=== PATIENT | male | born 1945 | race Caucasian/White ===

== ENCOUNTER 2019-02-09 00:28 | Inpatient (IN) | payer OTHER ==
[~2019-02-09] VITALS: Ht 185.4 cm; Wt 110.1 kg
[2019-02-09 01:14] LABS: BE(vivo) 1.9 mmol/L (-2 to +3); HCO3 29.5 mmol/L (22.0-26.0); PCO2 59.8 mmHg (35.0-45.0); PO2 123.2 mmHg (80.0-100.0); sO2 98.1 % (92.0-98.0)
[2019-02-09 01:15] LABS: pH 7.311 (7.360-7.450)
[2019-02-09] MEDS ORDERED: AMLODIPINE BESY10 MG PO (01:37)
[2019-02-09] MEDS ORDERED: LEXAPRO 10 MG T10 M2 PO (01:37)
[2019-02-09] MEDS ORDERED: IPRAT-ALBUT 0.5-3 ML INH (01:41)
[2019-02-09 02:30] VITALS: BP 122/68
[2019-02-09 05:15] LABS: CALCIUM 8.6 mg/dL (8.5-10.1); CREATININE 1.2 mg/dL (0.7-1.3); POTASSIUM 3.8 mmol/L (3.5-5.1)
[2019-02-09 05:19] LABS: HEMATOCRIT 36.3 % (42.0-52.0); HEMOGLOBIN 12.3 gm/dL (14.0-18.0); MCH 33.5 pg (26.0-34.0); MCHC 33.9 g/dL (28.0-37.0); MCV 98.8 fL (80.0-100.0); PLATELET COUNT 214 thou/uL (150-400); RBC 3.68 mil/uL (4.50-6.00); RDW 13.6 % (10.5-14.5); WBC 6.8 thou/uL (4.0-11.0)
[2019-02-09 05:21] LABS: ALBUMIN 2.8 g/dL (3.4-5.0); MAGNESIUM 1.8 mg/dL (1.8-2.4); TOTAL BILIRUBIN 0.8 mg/dL (<0.1-1.0); TOTAL PROTEIN 7.2 g/dL (6.4-8.2)
[2019-02-09 05:45] LABS: FOLIC ACID 15.5 ng/mL (8.6-58.9)
--- NOTE | 2019-02-09 05:48 | NUR ---
PT ADMITTED FROM [facility] TO ICU TO 2N WITH HYPOXIC RESP FAILURE,COPD EXACERBATION AND PNA.PT ARRIVED TO UNIT WITH BIPAP ON AT 4% FIO2,SATS 98% ON BIPAP.PT IS ACCOMPANIED BY HER DAUGHTER AND OTHER FAMILY MEMBER,A/OX4.[place]Y [place],HAS MARY HEARING AID BUT PER DAUGHTER PT STILL HAS DIFFICULTIES IN HEARING.ORIENTED TO RM.DENIES ANY DISTRESS.ASSESSMENT COMPLETED DOCUMENTED.STARTED ON ANTIBIOTICS PER ORDERS.TONIA FELDER.NSR ON MONITOR.FALL PRECAUTIONS INTIATED.MEDS VERIFIED BY VISUAL MERCHANDISING ASSOCIATE.IVF PER ORDERS.PT HAS H/O ALCOHOLISM,HAS CIWR ORERS IF NEEDED.PT HAS NO S/SX OF WITHDRAWING AT THIS TIME.RESTING IN NO ACUTE DISTRESS.VSS.WILL CONT TO MONITOR PER POC.
[2019-02-09 08:00] VITALS: BP 148/72
[2019-02-09 09:24] LABS: ABSOLUTE NEUTROPHILS 4.4 thou/uL (1.4-8.2); METAMYELOCYTES 1 %; PLATELET ESTIMATE NORMAL
--- NOTE | 2019-02-09 10:46 | 2DMMODE ---
[facility] [address] [place] [address] 2 D/M-MODE ECHOCARDIOGRAM Name: HUMBERTO MICHELE Room #: 218-P [facility] IN ..#: [id number] Admission: 02/09/19 Attend Phys: Kel Hilliard MD Discharge: Date of : 45 Report #: [id number] THIS REPORT FOR: //name// APPROVED REPORT Study performed: 02/09/2019 09:48:58 EXAM: Comprehensive 2D, Doppler, and color-flow Echocardiogram Patient Location: Bedside Room #: 218 Status: routine BSA: 2.28 HR: 94 bpm BP: 148/72 mmHg Rhythm: NSR Other Information Study Quality: Technically Difficult Technically limited study due to lung disease, inability to position patient, body habitus. Indications COPD Diabetes Hypertension/HDD SOA,HLD 2D Dimensions RVDd: 45.53 mm IVSd: 9.85 (7-11mm) LVOT Diam: 21.66 (18-24mm) LVDd: 51.18 mm PWd: 10.60 (7-11mm) LVDs: 36.42 (25-40mm) Aortic Root: 35.89 mm IVC: 31.00 mm Volumes Left Atrial Volume (Systole) Single Plane 4CH: 64.36 mL Single Plane 2CH: 37.18 mL LA ESV Index: 20.00 mL/m2 Aortic Valve AoV Peak Sagar.: 1.53 m/s AO Peak Gr.: 9.30 mmHg LVOT Max P.83 mmHg LVOT Max V: 1.31 m/s [facility] [address] [address] 2 D/M-MODE ECHOCARDIOGRAM Name: HUMBERTO MICHELE Room #: 218-P [facility]#: [id number] Admission: 02/09/19 Attend Phys: Kel Hilliard MD Discharge: Date of : 45 Report #: [id number] Vmax: 3.16 cm2 Mitral Valve E/A Ratio: 0.9 MV Decel. Time: 177.62 ms MV E Max Sagar.: 0.82 m/s MV A Sagar.: 0.95 m/s MV PHT: 51.51 ms Pulmonary Valve PV Peak Sagar.: 1.39 m/s PV Peak Gr.: 7.73 mmHg Tricuspid Valve RAP Estimate: 15.00 mmHg Left Ventricle The left ventricle is normal size. There is normal left ventricular wall thickness. The left ventricular systolic function is normal. The left ventricular ejection fraction is within the normal range. LVEF is 65%. This study is not technically sufficient to allow evaluation of the LV diastolic function. Right Ventricle Right ventricle is mild to moderately dilated. The right ventricular systolic function is normal. Atria The left atrium size is normal. Right atrium is mildly to moderately dilated. Aortic Valve The aortic valve is normal in structure. No aortic regurgitation is present. There is no aortic valvular stenosis. Mitral Valve The mitral valve is normal in structure. There is no mitral valve regurgitation noted. No evidence of mitral valve stenosis. Tricuspid Valve The tricuspid valve is normal in structure. Trace tricuspid regurgitation. Unable to assess PA pressure. Pulmonic Valve The pulmonary valve is normal in structure. Trace pulmonic regurgitation. [facility] [address] [place] [address] 2 D/M-MODE ECHOCARDIOGRAM Name: HUMBERTO MICHELE Room #: 218-P [facility] IN [facility].#: [id number] Admission: 02/09/19 Attend Phys: Kel Hilliard MD Discharge: Date of : 45 Report #: [id number] [employer] The aortic root is normal in size. IVC is dilated and collapses <50% with inspiration. Pericardium There is no pericardial effusion. <Conclusion> The left ventricle is normal size. LVEF is 65%. This study is not technically sufficient to allow evaluation of the LV diastolic function. Right ventricle is mild to moderately dilated. The right ventricular systolic function is normal. Right atrium is mildly to moderately dilated. The aortic valve is normal in structure. There is no mitral valve regurgitation noted. Trace tricuspid regurgitation. Unable to assess PA pressure. The aortic root is normal in size. There is no pericardial effusion. <ELECTRONICALLY SIGNED> By: Cristopher Beltre MD, [facility] 02/09/19 1045 1045 1045 Cristopher Beltre MD, [facility] /INF
[2019-02-09 12:00] VITALS: BP 146/62
[2019-02-09 16:00] VITALS: BP 159/65
--- NOTE | 2019-02-09 16:07 | NUR ---
Case opened to follow for dc planning. Pt is a&ox4 and lives alone in a mobile home. He has 3 steps to enter and lives down the road from his dtr Jessi. Jessi is at bedside today during my visit. She reports that she checks on him daily and can assist as needed at dc. The pt reports that he is very independent and manages his adl's and IADLs. His pcp is Dr. Elias Torres and he saw him about 3 weeks ago. He has an appt with him on 02/22/19. He denies any home dme other than a nebulizer. He reports that he had home o2 per [facility] at one time but had it picked up as he was not needing it. He had not had any hh or snf. Both services discussed as well as medicare coverage. He is receptive to discussing options further if needed, but he is hoping he can go home with outpt f/u at [place]. Pt currently on 8liters of o2 and was dc'd off the bipap this am. He worked with therapy this afternoon and needed 15 liters with activity. Pt's dtr indicates that [facility] would be their SNF choice and no preference for hh agency. The pt wants see how he feels in a couple of days before making any referrals including home o2. He would use [facility] if needed. Cm role introduced and support provided. No weekend dc anticipated. Will follow along and reasess in a couple of days.
--- NOTE | 2019-02-09 17:39 | EKG ---
[address] [address] ELECTROCARDIOGRAM REPORT Name: HUMBERTO MICHELE Room #: 218-P ADM IN M.R.#: [id number] Admission: 02/09/19 Attend Phys: Kel Hilliard MD Discharge: Date of : 45 Report #: [id number] THIS REPORT FOR: //name// [facility] Test Date: 2019-02-09 Test Time: 10:42:58 Pat Name: HUMBERTO MICHELE Department: Room: 218 P Gender: M Supervisor [place]: Jennifer RIVAS : 1945 Requested By: Cristopher Beltre Order Number: [id number] MD: Gianluca Helton Measurements Intervals [place] Rate: 93 P: 74 TN: 197 QRS: 89 QRSD: 110 T: -29 QT: 364 QTc: 453 Interpretive Statements Sinus rhythm Borderline right axis deviation Borderline T abnormalities, inferior leads No previous ECG available for comparison Electronically Signed On 02-09-2019 17:38:54 MANAGER WILLOW by Gianluca Helton [email or web address] <ELECTRONICALLY SIGNED> By: Gianluca Helton MD, [facility] 02/09/19 1738 1042 104 Gianluca Helton MD, [facility] /EPI
--- NOTE | 2019-02-09 18:02 | NUR ---
ASSESSMENT CHARTED. PT ALERT AND ORIENTED. VSS. RT TREATMENT PROVIDED ORDERED. PT REPORT FEELING MUCH BETTER. EVALUATED BY PT/OT/ SPEECH. NO CARDIAC OR RESPIRATORY DISTRESS NOTED. WILL CONTINUE TO MONITOR.
[2019-02-09 19:20] VITALS: BP 146/59
[2019-02-10 04:51] VITALS: BP 134/63
--- NOTE | 2019-02-10 05:46 | NUR ---
ASSUMED PT CARE AT 1900. VSS. O2 SATs DROPPED INTERMITTENTLY, PT PLACED IN BIPAP, O2 SAT CAME BACK UP, TREMORS NOTED INTERMITTENTLY THROUGH THE NIGHT, OTHERWISE, PT IS STABLE, NO COMPLAINTS OF PAIN OR DISCOMFORT, WILL CONTINUE TO MONITOR PER POC
[2019-02-10 08:00] VITALS: BP 139/73
[2019-02-10 12:22] VITALS: BP 118/62
[2019-02-10 16:00] VITALS: BP 119/61
--- NOTE | 2019-02-10 18:12 | NUR ---
ASSESSMENT CHARTED. PT ALERT AND ORIENTED. VSS. DENIED HAVING PAIN. RT TREATMENT PROVIDED ORDERED. HAS BEEN SLEEPING MOST OF THE SHIFT. SEEN BY DR. UGALDE. ORDERS NOTED. FAMILY UPDATED ON PT'S PROGRESS. WILL CONINUE TO MONITOR,
[2019-02-10 20:20] VITALS: BP 163/69
[2019-02-11 04:47] VITALS: BP 113/62
[2019-02-11 04:47] LABS: CALCIUM 8.4 mg/dL (8.5-10.1); CREATININE 1.2 mg/dL (0.7-1.3); MAGNESIUM 2.6 mg/dL (1.8-2.4); PHOSPHORUS 2.6 mg/dL (2.5-4.9); POTASSIUM 4.2 mmol/L (3.5-5.1)
--- NOTE | 2019-02-11 06:39 | NUR ---
ASSUMED PT CARE AT 1900. VSS. PT A&0X4. MORE AWAKE AND CONVERSANT AT THE BEGINING OF THE SHIFT. VERY MINIMAL SECRETIONS WITH COUGH THIS SHIFT. PT WAS ON BIPAP ALL NIGHT WHILE ASLEEP AND WAS ON 02 AT 9L WHILE AWAKE. 02 SAT GREATER 90% ALL NIGHT. PT IS STABLE NO COMPLAINTS OR DISTRESS. SLEPT THROUGH THE NIGHT. WILL CONTIUNUE TO MONITOR PER POC.
[2019-02-11 08:00] VITALS: BP 121/65
[2019-02-11 12:00] VITALS: BP 132/52
[2019-02-11 16:00] VITALS: BP 154/66
--- NOTE | 2019-02-11 18:34 | NUR ---
PT ALERT AND ORIENTED. VSS. DENIED HAVING PAIN. RT TREATMENT PROVIDED ORDERED. UP IN THE CHAIR THIS SHIFT. EVALUATED BY SPEECH AND OT. FAMILY UPDATED ON PT'S PROGRESS. WILL CONTINUE TO MONITOR.
[2019-02-11 20:30] VITALS: BP 119/53
[2019-02-12 04:46] VITALS: BP 132/53; BP 159/60
[2019-02-12 04:49] LABS: ALBUMIN 2.5 g/dL (3.4-5.0); ANION GAP < 0 mmol/L (7-16); BUN 26 mg/dL (7-18); CALCIUM 8.6 mg/dL (8.5-10.1); CHLORIDE 100 mmol/L (98-107); CO2 39 mmol/L (21-32); GLUCOSE 266 mg/dL (74-106); MAGNESIUM 2.4 mg/dL (1.8-2.4); SGOT 25 U/L (15-37); SGPT 74 U/L (30-65); SODIUM 138 mmol/L (136-145); TOTAL BILIRUBIN 0.4 mg/dL (<0.1-1.0); TOTAL PROTEIN 6.2 g/dL (6.4-8.2)
[2019-02-12 05:00] LABS: HEMATOCRIT 37.2 % (42.0-52.0); HEMOGLOBIN 12.2 gm/dL (14.0-18.0); MCH 33.1 pg (26.0-34.0); MCHC 32.8 g/dL (28.0-37.0); MCV 100.9 fL (80.0-100.0); RBC 3.69 mil/uL (4.50-6.00); RDW 13.5 % (10.5-14.5); WBC 11.4 thou/uL (4.0-11.0)
--- NOTE | 2019-02-12 05:39 | NUR ---
ASSUME CARE 1900. PT/VITALS STBLE. DENIES ANY PAIN, TOLERATES ACTIVITY WELL. UP WITH STB ASSIST TO BATHROOM. NO WITHDRAWAL EPISODES NOTED. COOPERATIVE. A/O X 4. BREATHING IS IMPROVING. PT ON 4LNC AND DOING WELL. WEAR BIPAP AT NIGHT. PROGRESSING WELL WITH POC. ADEQUATE REST NOTED WITH NO DISTRESS. WILL CONITNUE TO MONITOR AND FOLLOW WITH POC
[2019-02-12 05:59] LABS: BE(vivo) 12.8 mmol/L (-2 to +3); PO2 70.4 mmHg (80.0-100.0); pH 7.421 (7.360-7.450); sO2 93.9 % (92.0-98.0)
[2019-02-12 07:00] VITALS: BP 161/83
[2019-02-12 07:06] LABS: GLYCOHEMOGLOBIN (HGB A1C) 6.4 % (4.8-5.6)
[2019-02-12 15:30] VITALS: BP 149/62
--- NOTE | 2019-02-12 17:10 | NUR ---
ASSESSMENT CHARTED. PT ALERT AND ORIENTED. UP IN THE CHAIR THIS SHIFT. TONIA Weldon/Mirta. PARTICIPATED IN PHYSICAL THERAPY. FAMILY UPDATED ON PT'S PROGRESS. WILL CONTINUE TO MONITOR.
[2019-02-12 19:35] VITALS: BP 149/71
--- NOTE | 2019-02-13 03:40 | NUR ---
ASSUMED PT CARE AT 1900, VSS. PT A&0X4. STRONG AND STEADY ON FEET, PT'S WELLFARE HAS SIGNIFICANTLY IMPROVED. HE APPEARS TO BE IN GOOD SPIRITS, NO COMPLAINTS OF PAIN OR DISTRESS, PRETTY UNEVENTFUL NOC, WILL CONTINUE TO MONITOR PER POC.
[2019-02-13 05:16] VITALS: BP 153/64
[2019-02-13 08:00] VITALS: BP 149/72
--- NOTE | 2019-02-13 17:09 | NUR ---
Sp with patient and dtr 5N eval and patient too high level for 5N. spoke with dtr and patient at bedside. Discussed HH care and dtr/patient want referral to [facility]. Sp with admissions. Faxed referral for review. Updated dtr and patient. Notified phys of their wish for skilled care at dc. [facility] following.
--- NOTE | 2019-02-13 17:15 | NUR ---
ASSUMMED PT CARE AT APPROXIMATELY 0700. PT A&O X4. ASSESSMENT CHARTED. FALL PRECAUTIONS IN PLACE. PT DENIES HAVING CHEST PAIN. PT DENIES HAVING SOB. PT DENIES HAVING ACUTE PAIN. PT MOVED TO MED-SURG STATUS. TITRATING O2 DOWN PER DR ORDER. PT TOLERATING WELL. O2 SAT STABLE. VITAL SIGNS STABLE. BLOOD SUGARS STABLE. PT AND PT'S FAMILY EDUCATED ABOUT POC. PT AND PT'S FAMILY STATED UNDERSTANDING AND DENIED HAVING FURTHER QUESTIONS. PT WILL BE TRANSFERRED TO 4W. PT UP TO CHAIR THROUGHOUT SHIFT. PT AMBULATES STEADY C STANDBY. PT COMFORTABLE IN CHAIR EATING DINNER. PT DENIES HAVING FURTHER CONCERNS. PT CURRENTLY AT 2 L 02 NC. O2 SAT STABLE.
--- NOTE | 2019-02-13 20:04 | NUR ---
PT ARRIVED TO UNIT AT 18:40 PT ALERT XS 4. DNR. 73 YO MALE. ADMITTED 02/09/19 DX OF ACUTE HYPOXIA RESP FAILURE, COPD, PT W/O PAIN OR RESP DISTRESS. PT TO DISCHARGE TOMMORROW.
[2019-02-13 23:10] VITALS: BP 140/62
--- NOTE | 2019-02-14 05:44 | NUR ---
Assumed pt care at 1900. Pt is A/OX4,VSS. Denies pain on assessment. Pt is up with SBA to the bathroom, does get dyspnea on exertion oxygen on @ 2L/NC. Wearing BIPAP at [facility] nad tolerated well. Pt is hard of hearing wears bilateral hearing aids. Fall precautions implemewnted,dtr at the bedside for the night. Will continue to monitor pt.
[2019-02-14 09:43] VITALS: BP 158/70
[2019-02-14] MEDS ORDERED: VITAMIN B-1100 M2 PO (10:22)
[2019-02-14] MEDS ORDERED: PREDNISONE 5 MG5 MG PO (10:22)
[2019-02-14] MEDS ORDERED: PEPCID20 MG PO (10:22)
[2019-02-14] MEDS ORDERED: MIRALAX17 GM PO (10:22)
[2019-02-14] MEDS ORDERED: PRENATAL PO (10:22)
[2019-02-14] MEDS ORDERED: MOBIC7.5 M1 PO (10:22)
[2019-02-14] MEDS ORDERED: AUGMENTIN 875-1 EACH PO (10:22)
[2019-02-14] MEDS ORDERED: METFORMIN HCL500 M3 PO (10:22)
[2019-02-14] MEDS ORDERED: ACETAMINOPHEN325 M1 PO (10:22)
[2019-02-14 11:47] VITALS: BP 158/70
[2019-02-14 12:25] VITALS: BP 158/70
--- NOTE | 2019-02-14 12:29 | NUR ---
Following for d/c planning needs. Received order from physician to arrange d/c home with home health. Reviewed chart and spoke with nurse, physician, pt and pt's daughter. Pt does not want to go to SNF and physician and daughter are agreeable. Pt does not have BiPAP at home, and has not had a sleep study in the past. Dtr has called pt's PCP and is making arrangements to have outpatient sleep study to see if he qualifies for home BiPAP. Explained to pt and dtr that [facility] would be able to provide BiPAP in SNF until pt is able to have sleep study done. Pt and dtr want pt to return home with home health. Pt has not used home health in the past and are agreeable with any home health company that services their area. Called [facility] and they are able to accept pt. Faxed referral. Dtr is a nurse and will be staying overnight with pt when he first returns home. Have asked for order for exercise oximetry prior to d/c to see if pt requires oxygen for home use.
[2019-02-14] MEDS ORDERED: OXYGEN MISCELL (13:54)
[2019-02-14 13:55] VITALS: BP 158/70
[2019-02-14] MEDS ORDERED: HOME OXYGEN (13:55)
[2019-02-14 16:00] VITALS: BP 142/64
--- NOTE | 2019-02-14 17:11 | NUR ---
PT A&OX4, VSS, DENIES PAIN. DAUGHTER AT BEDSIDE WITH PATIENT. LUNGS DIMINISHED, CLEAR. BREATHING REGULAR, NO COUGH, AFEBRILE. PATIENT SENT HOME ON 4L OF OXYGEN D/T SATS DECREASING WITH EXERTION. NO SIGNS OF DISTRESS. ALL BELONGINGS WITH PATIENT, IV REMOVED, PATIENT DISCHARGED HOME WITH HOME HEALTH.
--- NOTE | 2019-02-22 11:02 | HC ---
[facility] [place] [address] CONSULTATION Name: HUMBERTO MICHELE Room #: 411-P [facility] IN .R.#: [id number] Admission: 02/09/19 Attend Phys: Kel Hilliard MD Discharge: 02/14/19 Date of : 45 Report #: [id number] THIS REPORT FOR: //name// CC: FAM unknown Kel Hilliard DATE OF SERVICE: 02/13/2019 HISTORY OF PRESENT ILLNESS: The patient is a 73-year-old white male admitted with COPD, exacerbation with acute on chronic hypoxic respiratory failure. He was noted to have a community-acquired pneumonia. He has been treated with bilateral patchy infiltrates. He also has history of ETOH abuse and did have some toxic metabolic encephalopathy that appears to be gradually improving. The patient continues on O2, currently 3.5 liters. Had been on it before, but had been taken away as he apparently was not utilizing it. He has been followed by Pulmonary Medicine and Cardiology. We are seeing him in rehabilitation medicine consultation. PAST MEDICAL HISTORY: Includes hypertension, hyperlipidemia, diabetes mellitus type 2, COPD, obesity, anxiety, alcohol abuse, prostate CA, status post radiation, BPH. MEDICATIONS: Please see the full medication listing. ALLERGIES: No known drug allergies. SOCIAL HISTORY: Lives in a mobile home alone, 3 steps in, involves daughter and son-in-law. He did not utilize gait aids premorbidly and was not on oxygen premorbidly. HABITS: Noted to have alcohol abuse with fifth of whiskey per day. Past history of tobacco abuse. FAMILY HISTORY: Mother had TB. Father sudden cardiac . REVIEW OF SYSTEMS: No current complaints of chest pain, some shortness of breath with increased activity. No abdominal discomfort. Denies focal extremity pain complaints. PHYSICAL EXAMINATION: GENERAL: A 73-year-old somewhat overweight, pleasant 73-year-old white male in no obvious distress. Male pattern balding. A 3.5 liters nasal cannula. Follows basic 1 step commands without difficulty. HEENT: Facies appeared symmetric. EXTREMITIES: He has functional range of motion of both upper extremities without obvious focal weakness. DTRs are trace to 1. Lower extremities, [facility] [address] [place] [address] CONSULTATION Name: HUMBERTO MICHELE [place] Room #: 411-P [facility] IN ..#: [id number] Admission: 02/09/19 Attend Phys: Kel Hilliard MD Discharge: 02/14/19 Date of : 45 Report #: [id number] strength 4+ to 5-/5. DTRs are trace to 1. Tone is intact. He is doing well with sit to stand, standby assistance and was ambulating 300 feet standby assistance without an assistive device. He is going up and down 4 steps with standby assistance. Physical therapy has actually discharged him and he can ambulate with nursing. ASSESSMENT: A 73-year-old male with the following problem list: 1. Chronic obstructive pulmonary disease, exacerbation. 2. Acute on chronic hypoxic respiratory failure. 3. Toxic metabolic encephalopathy that appears to be improving. 4. Community-acquired pneumonia. 5. History of ETOH abuse. 6. Past history of tobacco abuse. 7. Exogenous obesity. 8. Chronic diastolic heart failure. PLAN: The patient is actually too high from a functional perspective to warrant an acute in-hospital, inpatient rehabilitation stay. Would anticipate that he should be able to return directly home, possibly with some outpatient pulmonary rehabilitation as he further medically stabilizes. Thank you for asking us to assist in this patient's care. <ELECTRONICALLY SIGNED> By: Mayank Julio MD 02/22/19 1102 1445 0137 Mayank Julio MD /nt
== END 2019-02-14 16:00 | disposition home health service (06) | DRG 177 ==
LOC: ICU 00:28 → 2N 00:32 → ICU 00:32 → 2N 02:56 → 4N 02-13 17:28
PROVIDERS: Nurse Practitioner Family; ADMIT Internal Medicine
PROC: 5A09357 Assistance with Respiratory Ventilation, Less than 24 Consecutive Hours, Continuous Positive Airway Pressure (ICD-10-PCS; principal; 2019-02-09)
PROC: 5A09357 Assistance with Respiratory Ventilation, Less than 24 Consecutive Hours, Continuous Positive Airway Pressure (ICD-10-PCS; 2019-02-10)
PROC: 5A09357 Assistance with Respiratory Ventilation, Less than 24 Consecutive Hours, Continuous Positive Airway Pressure (ICD-10-PCS; 2019-02-11)
PROC: 5A09357 Assistance with Respiratory Ventilation, Less than 24 Consecutive Hours, Continuous Positive Airway Pressure (ICD-10-PCS; 2019-02-12)
PROC: 5A09357 Assistance with Respiratory Ventilation, Less than 24 Consecutive Hours, Continuous Positive Airway Pressure (ICD-10-PCS; 2019-02-13)
DX: J15.6 Pneumonia due to other Gram-negative bacteria (principal); J96.21 Acute and chronic respiratory failure with hypoxia; G92 Toxic encephalopathy; J96.22 Acute and chronic respiratory failure with hypercapnia; I50.32 Chronic diastolic (congestive) heart failure; I42.6 Alcoholic cardiomyopathy; E46 Unspecified protein-calorie malnutrition; E78.5 Hyperlipidemia, unspecified; E11.9 Type 2 diabetes mellitus without complications; F41.9 Anxiety disorder, unspecified; F10.10 Alcohol abuse, uncomplicated; N40.0 Benign prostatic hyperplasia without lower urinary tract symptoms; Z60.2 Problems related to living alone; E66.01 Morbid (severe) obesity due to excess calories; G47.33 Obstructive sleep apnea (adult) (pediatric); E53.8 Deficiency of other specified B group vitamins; F32.9 Major depressive disorder, single episode, unspecified; J43.9 Emphysema, unspecified; Z66 Do not resuscitate; I11.0 Hypertensive heart disease with heart failure; Z68.32 Body mass index [BMI] 32.0-32.9, adult; Z85.46 Personal history of malignant neoplasm of prostate; Z92.3 Personal history of irradiation; Z82.49 Family history of ischemic heart disease and other diseases of the circulatory system; Z83.1 Family history of other infectious and parasitic diseases; Z87.891 Personal history of nicotine dependence; Z79.899 Other long term (current) drug therapy; Z91.19 Patient's noncompliance with other medical treatment and regimen; Z99.81 Dependence on supplemental oxygen
CPT/HCPCS: 10081; 10790

== ENCOUNTER → 2019-04-24 | Outpatient (CLI) | payer OTHER ==
[~2019-04-24] MED LIST: ACETAMINOPHEN325 M1 PO; AMLODIPINE BESY10 MG PO; AUGMENTIN 875-1 EACH PO; HOME OXYGEN; IPRAT-ALBUT 0.5-3 ML INH; LEXAPRO 10 MG T10 M2 PO; METFORMIN HCL500 M3 PO; MIRALAX17 GM PO; MOBIC7.5 M1 PO; OXYGEN MISCELL; PEPCID20 MG PO; PREDNISONE 5 MG5 MG PO; PRENATAL PO; VITAMIN B-1100 M2 PO
== END ==
LOC: SJCVC 15:40
DX: R94.31 Abnormal electrocardiogram [ECG] [EKG] (principal); I10 Essential (primary) hypertension; E78.5 Hyperlipidemia, unspecified; E11.9 Type 2 diabetes mellitus without complications; J44.9 Chronic obstructive pulmonary disease, unspecified; Z79.84 Long term (current) use of oral hypoglycemic drugs; Z79.899 Other long term (current) drug therapy

== ENCOUNTER → 2020-01-05 | Outpatient (CLI) | payer OTHER | LOC: SJCVCIMAG 08:34 | PROVIDERS: ATTEND Internal Medicine Cardiovascular Disease | DX: I34.0 Nonrheumatic mitral (valve) insufficiency (principal); R94.31 Abnormal electrocardiogram [ECG] [EKG]; I49.1 Atrial premature depolarization; I10 Essential (primary) hypertension; E78.5 Hyperlipidemia, unspecified; E11.9 Type 2 diabetes mellitus without complications; J44.9 Chronic obstructive pulmonary disease, unspecified; Z79.899 Other long term (current) drug therapy; Z87.891 Personal history of nicotine dependence ==